=== PATIENT | male | born 1970 | race Two or more races ===

== ENCOUNTER 2020-04-20 13:24 | Emergency (ER) | payer SELFPAY ==
[2020-04-20 13:24] VITALS: BP 128/89
[2020-04-20] MEDS ORDERED: DexAMETHasone SOD PHOS 10MG/1ML VIAL INJ IM ONE (15:15)
[2020-04-20] MEDS ORDERED: cefTRIAXone SOD 1,000 MG VL IM ONE (15:15)
== END 2020-04-20 16:18 | disposition home or self-care (01) ==
LOC: ER 13:24
DX: U07.1 COVID-19 (principal); J12.89 Other viral pneumonia
CPT/HCPCS: 36415; 71045; 87426; 96372; 99284; J0696; J1100